=== PATIENT | male | born 1945 | race Caucasian/White ===

== ENCOUNTER 2023-12-01 10:57 | Outpatient (REF) | payer MEDICARE, OTHER, SELFPAY ==
[2023-12-01 12:31] LABS: Syphilis Screen Nonreactive (Nonreactive)
[2023-12-01 12:46] LABS: Folate 9.9 ng/mL (> or = 4.0); Vitamin B12 412 pg/mL (200-900)
[2023-12-02 08:33] LABS: Lyme Abs Screen <0.90 index
== END 2023-12-01 10:58 | disposition home or self-care (01) ==
LOC: HO.LAB 10:57
PROVIDERS: PCP Internal Medicine; Visit Provider Psychiatry & Neurology Neurology
DX: G93.40 Encephalopathy, unspecified (principal)
CPT/HCPCS: 36415; 82607; 82746; 86617; 86618; 86780